=== PATIENT | female | born 1980 | race Caucasian/White ===

== ENCOUNTER 2024-08-28 16:49 | Emergency (ER) | payer OTHER, SELFPAY ==
[2024-08-28 16:54] VITALS: BP 93/75
--- NOTE | 2024-08-28 18:46 | ED.GENMED ---
History of Present Illness
General
Chief Complaint: DVT/Possible Blood Clot
Time Seen by Provider: 08/28/24 17:39
History of Present Illness
History of Present Illness:
44-year-old female with history of factor V Leiden with prior history of PE presenting to the emergency department for acute onset of left calf pain. Patient reports that she was walking on the treadmill yesterday, did a 5K at incline. She was
minimally sore, however when she went to the bank today, felt a pop in her leg and has since been unable to ambulate. Pain is in the left calf region. Denies numbness or tingling. Denies weakness. She has been taking ibuprofen for pain. Denies
additional injuries. Denies additional acute medical complaints
Past History
Past History
ED Past Medical History: Other (PE's 2006, 'diminished lung capacity since,' factor V leiden)
ED Past Surgical History: Other (Pulmonary emboli)
Social History
Tobacco: Non-smoker
Alcohol: Occasional
Personal:
Living: with family
Employment: Employed
Family History
Family History: Negative Early CAD or CAD
Phy Exam
Physical Exam
Physical Exam:
General: Well-appearing, no clinical signs of dehydration, nontoxic and in no acute distress
HEENT: protecting airway
Neck: appears supple
CV: Normal heart rate
Resp: No accessory muscle use, no increased work of breathing
Abd: No distention
Extremities: No deformities, no swelling. Focal tenderness to the left posterior calf. Distal sensation and pulses intact. Range of motion is grossly intact, however somewhat limited secondary to pain. No tenderness to the Achilles.
Neuro: alert, no focal neurologic deficit
: deferred
Rectal: deferred
Psych: Normal affect
Skin: Intact
Course
Orders/Labs/Results
Orders:
Orders
08/28/24 16:58
US Legs, Left [US Periph Venous LOWER Ext LT] Urgent
Comment:
Reason For Exam: left calf pain
08/28/24 18:43
Crutches-Treatment ONCE
Cyclobenzaprine HCl [Flexeril] 10 mg PO NOW STA
Ketorolac [Toradol] 15 mg IM NOW STA
Vital Signs
Initial and Last Documented VS:
Initial Vital Signs
Temp Pulse Resp BP Pulse Ox
98.2 F 80 20 93/75 98
08/28/24 16:54 08/28/24 16:54 08/28/24 16:54 08/28/24 16:54 08/28/24 16:54
Last Documented Vital Signs
Temp Pulse Resp BP Pulse Ox
98.2 F 80 20 93/75 98
08/28/24 16:54 08/28/24 16:54 08/28/24 16:54 08/28/24 16:54 08/28/24 16:54
MDM/Problems Addressed
MDM/Problems Addressed:
44-year-old female presenting to the emergency department for left calf pain with concern for DVT with known history Leiden, no intact. Vital signs are normal.
On exam patient resting comfortably, no acute distress or discomfort. Overall benign examination of the left lower extremity. No significant swelling or deformity. Without any direct trauma or concern for fracture or malalignment. No
neurovascular compromise. No infectious findings. No tenderness to the Achilles with range of motion intact in dorsiflexion and plantarflexion. Without present concern for Achilles injury. Suspect partial gastrocnemius tear or strain. DVT
ultrasound obtained given patient's history of factor V Leiden, no DVT. Will industrial eng Toradol for pain and cyclobenzaprine. Otherwise feel stable for discharge with outpatient orthopedic follow-up. Return precautions discussed the patient
verbalized understanding
*Critical Care Note
Total Time (30-74mins, 75-104mins- exclusive of procedures): Not Applicable
ED Attending Note
-
Portions of this chart may have been created with voice recognition software.� Occasional wrong word or��sound alike� substitutions may have occurred due to the inherent limitations of voice recognition software.
Discharge Plan
Departure
Prescriptions:
No Action
No Current Medications
0
Referrals:
Nate Sanchez MD [Family Provider, [facility]]
Interventions
Interventions:
*General Assessment Last Done: 08/28/24 17:33
*Neglect/Abuse Screening Last Done: 08/28/24 18:30
ED- Cardiac Assessment Last Done: 08/28/24 17:33
ED- Pulmonary Assessment Last Done: 08/28/24 17:34
ED-Peripheral Vascular Assessment Last Done: 08/28/24 17:34
ED-Skin Assessment Last Done: 08/28/24 17:34
Discharge Date and Time
Print Language: SINHALA
[2024-08-28] MEDS: TORADOL 15 MG IM (19:40)
[2024-08-28] MEDS: FLEXERIL 10 MG PO (19:40)
== END 2024-08-28 20:06 | disposition home or self-care (01) ==
LOC: EMR 16:49
PROVIDERS: EMERGENCY PHYSICIAN Student in an Organized Health Care Education/Training Program; FAMILY PHYSICIAN Family Medicine
DX: S86.912A Strain of unspecified muscle(s) and tendon(s) at lower leg level, left leg, initial encounter (principal); X58.XXXA Exposure to other specified factors, initial encounter; Y93.01 Activity, walking, marching and hiking; D68.51 Activated protein C resistance; Z86.711 Personal history of pulmonary embolism
CPT/HCPCS: 99284; 96372; 93971

== ENCOUNTER 2024-11-02 13:33 | Emergency (ER) | payer OTHER, SELFPAY ==
[2024-11-02 13:34] VITALS: BP 196/116
[2024-11-02 13:40] VITALS: BP 192/97
[2024-11-02 16:00] LABS: Hematocrit 41.5 % (37.0-47.0); Hemoglobin 14.1 g/dL (12.0-16.0); Mean Corp Hgb Conc. 34.0 g/dL (33.0-37.0); Mean Corpuscular Volume 90.6 fL (81.0-99.0); Nucleated Red Blood Cells % 0 %; Platelet Count 324 10^3/uL (130-400); Red Cell Dist. Width 13.5 % (11.5-14.5)
[2024-11-02 16:51] VITALS: BMI 47.9
--- NOTE | 2024-11-02 16:56 | ED.GENMED ---
History of Present Illness
General
Chief Complaint: DVT/Possible Blood Clot
Time Seen by Provider: 11/02/24 16:11
History of Present Illness
History of Present Illness:
44-year-old female presents to the emergency department for evaluation of of shortness of breath and cough, had an outpatient DVT study today showing a nonocclusive thrombus in the left common femoral vein as well as an occlusive thrombus in the
left peroneal vein. She has a prior history of PE secondary to factor V Leiden deficiency greater than 10 years ago. She is no longer on anticoagulants. Denies any fevers or chills. Denies any recent provoking events. She is not on any oral
hormone replacement therapy
Past History
Past History
ED Past Medical History: Other (PE's 2006, 'diminished lung capacity since,' factor V leiden)
ED Past Surgical History: Other (Pulmonary emboli)
Social History
Tobacco: Non-smoker
Alcohol: Occasional
Personal:
Living: with family
Employment: Employed
Family History
Family History: Negative Early CAD or CAD
Review of Systems
Review of Systems
Allergies reviewed?: Yes
All Other Systems: ROS reviewed and negative except as documented in HPI and ROS
Phy Exam
Physical Exam
Physical Exam:
GEN: Well appearing, NAD, WDWN
HEENT: Oral mucosa moist, no scleral icterus
Cardiac: Regular rate
Lung: No respiratory distress, no tachypnea
MSK: No gross deformity or injuries
Skin: Good color, no pallor or jaundice, no rashes
Neuro: AO x3, moves all extremities freely
Psych: Calm, cooperative
Scores
PE Low Risk Score
Hemodynamically unstable?: No
Thrombolysis or embolectomy needed?: No
Active bleeding or high risk for bleeding?: No
>24hrs on supplemental O2 required to maintain SaO2 >90%?: No
PE diagnosed while on anticoagulation?: No
Severe pain needing IV medication required for >24 hours?: No
Medical or social reason for admission >24 hours?: No
Creatinine clearance < 30 mL/min by Cockcroft-Gault?: No
Severe liver impairment?: No
?: No
Documented hx of heparin-induced thrombocytopenia (HIT)?: No
High risk features on CT (or pulmonary angiogram/MRA)(confirm with echo if features seen)?: No
High risk features on echo, if performed?: No
High risk features on laboratory testing?: No
High risk features on lower extremity US, if performed?: No
High risk features on ECG (confirm with echo if features seen)?: No
Recommendations: Patient is considered low risk
Course
Orders/Labs/Results
Orders:
Orders
11/02/24 15:45
CT Chest PE Study Urgent
Comment:
Reason For Exam: + dvt w/ cough, hx of PE
11/02/24 15:50
Complete Blood Count/With Diff Urgent
11/02/24 16:00
Add On- LAB Urgent
Tests Added?: hcg qualitative
11/02/24 16:50
Comprehensive Metabolic Panel Urgent
HCG, Serum Qualitative Screen Urgent
11/02/24 16:57
Electrocardiogram (*1) Urgent
Reason for Study: Shortness of Breath
EKG- Treatment ONCE
11/02/24 19:09
Apixaban [Eliquis] 10 mg PO NOW STA
Apixaban [Eliquis] 10 mg PO NOW STA
Abnormal Lab Results
11/02/24
15:50
Absolute Neuts (auto) 6.6 H 10^3/uL
(1.4-6.5)
Absolute Monos (auto) 0.7 H 10^3/uL
(0.1-0.6)
11/02/24 15:50
11/02/24 16:50
Vital Signs
Initial and Last Documented VS:
Initial Vital Signs
Temp Pulse Resp BP Pulse Ox
98.9 F 89 20 196/116 97
11/02/24 13:34 11/02/24 13:34 11/02/24 13:34 11/02/24 13:34 11/02/24 13:34
Last Documented Vital Signs
Temp Pulse Resp BP Pulse Ox
98.9 F 67 16 167/79 98
11/02/24 13:34 11/02/24 19:55 11/02/24 19:55 11/02/24 19:55 11/02/24 19:55
MDM/Problems Addressed
MDM/Problems Addressed:
Patient is found to have bilateral lobar PEs on CT scan. Her vital signs are stable, she is not hypoxic, and there is no sign of heart strain on imaging. Given her familiarity with prior DVT and PE and precautions of anticoagulants, patient is
reasonable for outpatient management. She is given initial dose of oral anticoagulants in the ED and a second dose to carry home for morning usage. She will be referred to pulmonology for close outpatient follow-up and is given a savings card for
[employer] going forward. Educated on strict precautions regarding blood thinner use and traumatic injuries. In all likelihood she will require lifelong anticoagulation
*Pulse Oximetry
SaO2: 97
Oxygen Mode of Delivery: Room air
Patient hypoxic: no
*Critical Care Note
Total Time (30-74mins, 75-104mins- exclusive of procedures): Not Applicable
ED Attending Note
-
Portions of this chart may have been created with voice recognition software.� Occasional wrong word or��sound alike� substitutions may have occurred due to the inherent limitations of voice recognition software.
Discharge Plan
Departure
Patient Disposition: Home (Routine Discharge)
Date of Disposition: 11/02/24
Time of Disposition: 19:15
Patient with high blood pressure during this ER visit?: Yes
Discharge Problem:
Bilateral pulmonary embolism
Instructions: How to take anticoagulants safely, ED Low Risk PE
Prescriptions:
New
Eliquis 5 mg tablet
5 mg PO BID Qty: 70 0RF
Rx Instructions:
10mg PO BID x 6d, then 5mg PO BID
No Action
cyclobenzaprine 10 mg tablet
10 mg PO TID PRN (Reason: muscle spasm) 5 Days Qty: 15 0RF
Referrals:
Marisela Contreras MD [Active, Pulmonary Medicine] - Follow up in 5-7 days
Nate Sanchez MD [Family Provider, Family Practice]
Stand Alone Forms: Return to Work
Interventions
Interventions:
*Risk Screen - Suicide Last Done: 11/02/24 13:34
*General Assessment Last Done: 11/02/24 13:34
*Neglect/Abuse Screening Last Done: 11/02/24 13:34
*ED- Fall Risk Assessment Last Done: 11/02/24 18:00
*Nursing Disposition Last Done: 11/02/24 19:55
ED- Cardiac Assessment Last Done: 11/02/24 18:00
ED- Pulmonary Assessment Last Done: 11/02/24 18:00
ED-Peripheral Vascular Assessment Last Done: 11/02/24 18:00
ED-Skin Assessment Last Done: 11/02/24 18:00
Discharge Date and Time
Discharge Date/Time: 11/02/24 20:00
Print Language: URDU
[2024-11-02 17:26] LABS: ALT (SGPT) 32 U/L (0-35); AST (SGOT) 24 U/L (14-36); Albumin 4.2 g/dl (3.5-5.0); Alkaline Phosphatase 78 U/L (38-126); Blood Urea Nitrogen 14 mg/dl (7-17); Calcium 9.6 mg/dl (8.4-10.2); Carbon Dioxide 24 mmol/L (22-30); Chloride 107 mmol/L (98-107); Estimated Creatinine Clearance > 125 ml/min; Glucose 96 mg/dl (70-99); Potassium 4.0 mmol/L (3.5-5.1); Sodium 139 mmol/L (135-145); Total Protein 6.8 g/dl (6.3-8.2); eGFR > 60.00
[2024-11-02 17:31] LABS: HCG, Serum Qualitative Screen Negative
[2024-11-02 19:10] VITALS: BP 167/79
[2024-11-02] MEDS: ELIQUIS 10 MG PO ×2 (19:40→19:41)
[2024-11-02 19:55] VITALS: BP 167/79
== END 2024-11-02 20:00 | disposition home or self-care (01) ==
LOC: EMR 13:33
PROVIDERS: Nurse Practitioner; EMERGENCY PHYSICIAN Emergency Medicine; FAMILY PHYSICIAN Family Medicine
DX: I26.99 Other pulmonary embolism without acute cor pulmonale (principal); D68.51 Activated protein C resistance; Z86.711 Personal history of pulmonary embolism; Z86.718 Personal history of other venous thrombosis and embolism; Z79.01 Long term (current) use of anticoagulants
CPT/HCPCS: 99284; 71275; 80053; 84703; 85025; 93005; 93970; Q9967